=== PATIENT | female | born 1975 | race Two or more races ===

== ENCOUNTER 2020-09-04 12:42 | Emergency (ER) | payer OTHER ==
[~2020-09-04] VITALS: Ht 165.1 cm; Wt 81.4 kg
[~2020-09-04 12:42] MED LIST: ATOR20TA37 PO; BENA40TA3 PO; HYDR25TA6 PO; INSU100V8 SQ; MAGN400T36 PO; METF500T17 PO; ONDA4TAB7 PO
[2020-09-04] MEDS ORDERED: DEXAMETHASONE 4 MG TABLET PO ONE (13:30)
--- NOTE | 2020-09-04 14:21 | NUR ---
COMPUTER ARCHITECT: PT TO ROOM FROM [facility]
--- NOTE | 2020-09-04 14:36 | NUR ---
BREAK RN: PT REPORTS FEVER, COUGH, BODY ACHES. PT ALSO REPORTS HER IS POSTIVE FOR COVID. VS STABLE. NO ACUTE DISTRESS NOTED. WILL CONTINUE TO MONITOR WHILE PRIMARY RN IS ON BREAK.
[2020-09-04] MEDS ORDERED: DEXAMETHASONE 4 MG TABLET ONE (15:00)
[2020-09-04] MEDS ORDERED: CEFTRIAXONE PMX 1GM/50ML 50 ML IVPB ONE (15:00)
[2020-09-04] MEDS ORDERED: CEFTRIAXONE PMX 1GM/50ML 50 ML ONE (15:00)
--- NOTE | 2020-09-04 15:40 | NUR ---
IV ABX CONTINUES TO INFUSE. PT ENCOURAGED TO KEEP ARM STRAIGHT TO ALLOW FOR INFUSION.
[2020-09-04 16:17] VITALS: BP 142/82
== END 2020-09-04 16:20 | disposition home or self-care (01) ==
LOC: ED 14:07
DX: J12.9 Viral pneumonia, unspecified (principal); Z20.828 Contact with and (suspected) exposure to other viral communicable diseases; R50.9 Fever, unspecified; R51.9 Headache, unspecified; R05 Cough; R06.02 Shortness of breath; M79.10 Myalgia, unspecified site; R53.83 Other fatigue; I10 Essential (primary) hypertension; E11.9 Type 2 diabetes mellitus without complications
CPT/HCPCS: 71045; 87635; 96365; 99284; J0696

== ENCOUNTER 2020-09-10 23:51 | Emergency (ER) | payer OTHER ==
[~2020-09-10] VITALS: Ht 165.1 cm; Wt 81.0 kg
[~2020-09-10 23:51] MED LIST changes: +ASCO500T9 PO; +CEFD300C37 PO; +CHOL500051 PO; +DOXY100T PO; +GUAI5SYR PO; +ZINC220C7 PO
[2020-09-11 00:39] LABS: BASOPHILS % (AUTO) 0 % (0-1); EOSINOPHILS % (AUTO) 0 % (1-7); LYMPHOCYTES % (AUTO) 7 % (22-44); MEAN CORPUSCULAR HEMOGLOBIN 25.9 pg (27.0-34.8); MEAN CORPUSCULAR HGB CONC 32.7 g/dL (32.4-35.8); MONOCYTES % (AUTO) 2 % (2-9); NEUTROPHILS % (AUTO) 92 % (42-75); PLATELET COUNT 284 x10^3/uL (130-400); RED BLOOD COUNT 4.74 x10^6/uL (3.82-5.3); RED CELL DISTRIBUTION WIDTH 14.3 % (9.6-15.2)
[2020-09-11 00:41] LABS: MD NO
--- NOTE | 2020-09-11 00:50 | NUR ---
pt to room from lobby
[2020-09-11 00:51] LABS: ALANINE AMINOTRANSFERASE 23 U/L (12-78); ALBUMIN 2.4 g/dL (3.4-5.0); ANION GAP 6 mmol/L (5-15); CALCIUM 8.3 mg/dL (8.5-10.1); CHLORIDE 105 mmol/L (98-107); CREATININE 1.04 mg/dL (0.55-1.02)
[2020-09-11 00:54] LABS: ALKALINE PHOSPHATASE 81 U/L (45-117); BILIRUBIN,TOTAL 0.8 mg/dL (0.2-1.0); TOTAL PROTEIN 6.8 g/dL (6.4-8.2)
--- NOTE | 2020-09-11 00:59 | NUR ---
first contact with pt,. cc of increased sob,. has pulse ox at home and states her oxygen was 81-83% at home and hasnt been eating. 89-92% ra currently
[2020-09-11] MEDS ORDERED: DEXAMETHASONE 4 MG TABLET PO ONE (01:30)
--- NOTE | 2020-09-11 01:32 | NUR ---
tp: attempting to set up dme for oxygen.
[2020-09-11] MEDS ORDERED: DEXAMETHASONE 4 MG TABLET ONE (01:45)
--- NOTE | 2020-09-11 02:59 | NUR ---
tp: have called multiple companies for oxygen and no company thus far is delievering
[2020-09-11 04:01] VITALS: BP 146/80
--- NOTE | 2020-09-11 04:04 | NUR ---
pt updated on poc with home oxygen. pt verbalizes understanding.
--- NOTE | 2020-09-11 05:00 | NUR ---
pt resting, no needs at this time
--- NOTE | 2020-09-11 06:23 | NUR ---
TP: able to get a hold of [facility] and shannon is able to send a lease purchase truck driver within hour and deliver oxygen to restaurant front manager.
--- NOTE | 2020-09-11 07:10 | NUR ---
REPORT GIVEN TO PHONG OH
--- NOTE | 2020-09-11 07:13 | NUR ---
SB[facility] HAND-OFF REPORT RECEIVED FROM ADRIANO ANGULO. ASSUMING CARE OF PATIENT.
--- NOTE | 2020-09-11 09:24 | NUR ---
THROUGHPUT RN: CALLED [facility] FOR UPDATE ON DELIVERY STATUS, SPOKE WITH DANTE, STATES SHE CONTACTED DISPATCH AND WE SHOULD HAVE A RETURN CALL WITH UPDATED ETA WITHIN NEXT HOUR. PRIMARY RN PHONG AND [employer]OL BUS OPERATOR BAO UPDATED
--- NOTE | 2020-09-11 10:35 | NUR ---
THROUGHPUT RN: [facility] DELIVERY AT BEDSIDE WITH PRIMARY RN BILL. CHILD CARE LEAD TEACHER AWARE
--- NOTE | 2020-09-11 10:45 | NUR ---
DOUBLE OXYGEN TANKS ON ROLLING CARRIER DELIVERED TO PATIENT. PT INSTRUCTED ON USE AND SET TO 2 LITERS PER MINUTE. OXYGEN INFORMATION SECURITY ASSOCIATE TO MEET PATIENT AT HER HOUSE FOR FURTHER INSTRUCTION ON REGULATOR CHANGE. PT AWARE.
== END 2020-09-11 10:46 | disposition home or self-care (01) ==
LOC: ED 09-11 00:21
DX: J12.9 Viral pneumonia, unspecified (principal); R11.2 Nausea with vomiting, unspecified; R05 Cough; R00.0 Tachycardia, unspecified; R50.9 Fever, unspecified; M79.10 Myalgia, unspecified site; I10 Essential (primary) hypertension; E11.9 Type 2 diabetes mellitus without complications
CPT/HCPCS: 36415; 71045; 80053; 83605; 85025; 87040; 93005; 99285